=== PATIENT | male | born 1950 | race Caucasian/White ===

== ENCOUNTER 2016-12-22 16:00 | Inpatient (IN) | payer BC, MEDICARE ==
[2017-01-02] MEDS ORDERED: MECLIZINE 25 MG TABLET PO ONE (06:00)
[2017-01-02] MEDS ORDERED: FAMOTIDINE 20MG TABLET PO ONE (06:00)
[2017-01-02] MEDS ORDERED: CELECOXIB 100 MG CAPSULE PO ONE (06:00)
[2017-01-02] MEDS ORDERED: CEFAZOLIN 2 Gram 2 GM/50 ML BAG IVPB ONE (06:00)
[2017-01-02] MEDS ORDERED: METOCLOPRAMIDE 10 MG TABLET PO ONE (06:00)
[2017-01-02] MEDS ORDERED: VANCOMYCIN HCL 1,000 MG in 0.9 % SODIUM CHLORIDE 250ML 250 ML IVPB ONE (06:00)
[2017-01-02 10:14] LABS: ABO GROUP O; ANTIBODY SCREEN NEGATIVE (NEGATIVE); RH TYPE POSITIVE
[2017-01-02] MEDS ORDERED: TRANEXAMIC ACID 1,000 MG/10 ML ML IV ONE ×2 (10:28→16:22)
[2017-01-02] MEDS ORDERED: 0.9 % SODIUM CHLORIDE 10 ML VIAL IVP ONE (10:28)
[2017-01-02] MEDS ORDERED: ACETAMINOPHEN 325 MG TAB PO PRN (13:03)
[2017-01-02] MEDS ORDERED: DIPHENHYDRAMINE HCL 25 MG CAPSULE PO PRN (13:03)
[2017-01-02] MEDS ORDERED: NALOXONE 0.4 MG/1 ML VIAL IVP PRN (13:03)
[2017-01-02] MEDS ORDERED: AL HYDROX/MAG HYDROX 30ML UD PO PRN (13:03)
[2017-01-02] MEDS ORDERED: TRAMADOL HCL 50 MG TABLET PO PRN (13:03)
[2017-01-02] MEDS ORDERED: BISACODYL 10 MG SUPP RC PRN (13:03)
[2017-01-02] MEDS ORDERED: ACETAMINOPHEN W/ CODEINE 300MG/60MG TABLET PO PRN ×2 (13:03)
[2017-01-02] MEDS ORDERED: ONDANSETRON HCL IV 4 MG/2 ML VIAL IVP PRN (13:03)
[2017-01-02] MEDS ORDERED: ZOLPIDEM TARTRATE 5 MG TABLET PO PRN (13:03)
[2017-01-02] MEDS ORDERED: HYDROMORPHONE HCL 2 MG/ML VIAL IM PRN (13:03)
[2017-01-02] MEDS ORDERED: KETOROLAC 30 MG/ML VIAL IVP PRN ×2 (13:03)
[2017-01-02] MEDS ORDERED: HYDROMORPHONE HCL 1MG/ML **SYRINGE IM PRN (13:03)
[2017-01-02] MEDS ORDERED: MAGNESIUM HYDROXIDE 30 ML UDC PO PRN (13:03)
[2017-01-02] MEDS ORDERED: DIPHENHYDRAMINE HCL IV 50 MG/ML VIAL IVP ONE (14:00)
[2017-01-02] MEDS ORDERED: MIDAZOLAM HCL 2MG/2ML VIAL IV ONE (14:00)
[2017-01-02] MEDS ORDERED: LIDOCAINE 2% MDV (20MG/ML) 20ML VIAL IV ONE (14:00)
[2017-01-02] MEDS ORDERED: PROPOFOL 10 MG/ML VIAL IV ONE (14:00)
[2017-01-02] MEDS ORDERED: HYDROMORPHONE HCL 2 MG/ML VIAL IV ONE (14:00)
[2017-01-02] MEDS ORDERED: FENTANYL PF 100MCG/2ML VIAL IV ONE (14:00)
[2017-01-02] MEDS ORDERED: BUPIVACAINE 0.75% W/EPI MPF 30ML VIAL IVP ONE (16:22)
[2017-01-02] MEDS ORDERED: VANCOMYCIN HCL 1 GM VIAL IVPB ONE (16:22)
--- NOTE | 2017-01-02 16:44 | Rehab Evaluation ---
Patient Information - Patient Information Diagnosis: total right knee Ordered Treatment: PT Evaluate and Treat Status: Initial Evaluation Surgery: Yes Date of Surgery: 01/02/17 Past Medical/Surgical Hx: PAST MEDICAL/SURGICAL HISTORY Past Surgical History MOLE REMOVAL LF FOOT AND NECK APPENDECTOMY URETHRA WARTS CHOLECYSTECTOMY KRISH SHOULDER SX C-SCOPE PMH - Respiratory Hx Respiratory Disorders Yes Hx Asthma Yes: ALLERGY INDUCED PMH - Cardiovascular Hx Cardiovascular Disorders Yes Hx Hypertension Yes: CONTROLLED WITH MEDS Exercise Tolerance Good PMH - Neuro Hx Neurological Disorders Yes Hx Neuropathy Yes: BOTTOMS OF FEET PMH - GI Hx Gastrointestinal Disorders Yes Hx Diverticulitis Yes Comment: lactose intollerant PMH - Hx Genitourinary Disorders No PMH - Endocrine Hx of NIDDM Yes Comment: CHECKS DAILY 141 THIS AM RECENT HGB A1 C 7.1 PMH - Musculoskeletal Hx Musculoskeletal Disorders Yes Hx Arthritis Yes: RIGHT KNEE PMH - Psych Hx Psychiatric Problems No PMH - Hematology/Oncology Hx Hematology/Oncology No Disorders Premorbid Status: Detail (The patient was independent with all mobility and ADL' s) Social History: Detail (The patient lives with spouse in a tri-level home. The patient has to climb 7 steps from the first to second floor with one handrail. The patient's bathroom is equipped with a walk in shower without a seat and a regular toilet. The patient has a walker with wheels and several canes with single point.) Precautions: [place], Other (WBAT on the R LE) - Time With Patient Total Time Spent With Patient (Min): 30 Treatment Procedures: Detail (PT initial evaluation) Subjective Information - Subjective Information Per Patient (The patient had no complaints of pain. The patient did complain of lightheadness.) Objective Data - Mental Status Patient Orientation: Oriented x3 - Visual Perception Appears within normal limits for therapeutic activities - ROM Not within normal limits (The patient's L LE AROM was WNL. The patient's R knee AROM was not tested secondary to post-op.) - Strength/Tone Not within normal limits (The patient's L LE strength was 5/5. The patient's R LE strength was not tested secondary to status post op however the patient's strength was functional ( the patient could complete a SLR)) - Bed Mobility Independent (The patient was independent with sit to supine) - Transfers Independent (The patient required supervision for safety with toilet transfer. The patient was independent with sit to and from stand transfer.) - Balance Balance Sitting: Good Balance Standing: Good - Gait Detail (The patient ambulated with wheeled walker a distance of 11 feet x 1 and 7.5 feet x 1 with CG for safety WBAT on the R LE. The patient's ambulation was limited secondary to symptoms of lightheadness.) Therapy Assessment - Therapy Assessment Detail (The patient was independent with bed mobility and transfers. The patient's ambulation distance was limited due to symptooms of lightheadness. The patient completed gluteal sets, quad sets and ankle pumps. Feel the patient will progress well in PT .) Problem List - Problem List Physical Therapy Problem List: Detail (1) Decreased R knee AROM and strength as to be expected following surgery. 2) lightheadness with ambulation 3) Nonambulatory on stairs) Goals - Goals Physical Therapy Goals: 1) The patient will be independent with ambulation with assistive device WBAT on the R LE a distance of 75 - 100 feet. 2) The patient will be independent/supervision with ambulation on a flight of 7 steps WBAT on the R LE. 3) The patient will be independent with all transfers 4) The patient will be independent with HEP. Prognosis - Prognosis Good Plan - Plan Physical Therapy Plan: PT 1-2 times a day for gait training, transfer training, instruction in home exercise program until all PT goals were met.
--- NOTE | 2017-01-02 16:44 | Operative Note ---
DATE: 01/02/2017. PREOPERATIVE DIAGNOSIS: END-STAGE ARTHROSIS OF THE RIGHT KNEE. POSTOPERATIVE DIAGNOSIS: END-STAGE ARTHROSIS OF THE RIGHT KNEE. PROCEDURE: Cemented right total knee arthroplasty using Merino and Nephew Sheri with two components with a size 8 Oxinium femur, size 8 stemmed tibia base plate, a 9 mm lift Highly Crosslinked tibial insert, and a size 35 all- plastic patella. STAFF SURGEON: MICHELA WEAVER M.D. ANESTHESIA: SPINAL. PREPARATION: CHLORAPREP. INDIVIDUAL CONSIDERATIONS: NONE. PROCEDURE: The patient was taken to the Operating Room and placed supine on the operating table. He had a successful induction of a spinal anesthetic. His right lower extremity was then prepped and draped in the usual fashion. The patient had midline approach to the knee. The limb was elevated and the tourniquet was inflated to 250 mmHg. Sharp dissection was carried down through the skin and subcutaneous tissues. Small veins were coagulated with a Bovie. The medial arthrotomy was performed. The patella was everted and the knee was flexed. He exposed bone actually all three compartments and marginal osteophytes. The fat pad was resected, ACL was sacrificed, provisional anterior meniscectomies were performed, and the capsule was released from the medial proximal tibia. Initial femoral fire pilot hole was then made freehand. The initial transverse cutting jig was placed and it was cut in 7 degrees of valgus, adjusted for rotation, and secured with pins for a 10 mm resection. The initial transverse cut was then made. Skin guide was placed at the anterior and posterior fire pilot holes, and it was found that a size 8 would be appropriate. The anterior and posterior cuts were made followed by chamfer cuts were made, osteophytes were removed, and a size 8 trial was placed and was found to fit well. The tibia was brought forward, and the remainder of the meniscal remnants were removed with a Bovie. The extra-articular tibial cutting jig was placed, and it was cut in neutral with a 3-degree AP slope. Care was taken to adjust for rotation and flexion using the extra-articular alignment guide and Bovie landmarks. It was set for a 9-mm resection and keyed off the high lateral side and secured with pins. When cutting the tibia, care was taken to preserve the PCL insertion on the tibia. Osteophytes were removed and I was found that I could fit a size 8, it was adjusted for rotation and secured with pins. With a 9 mm trial as a femoral trial, there was excellent motion and stability. Ligamentous balance, rotation, and alignment were thought to be normal. The femoral fire pilot holes were impacted, and the triflange tibial stamp was impacted, and these trial components were removed. The patient had a very thick patella and roughly 9 mm of bone was removed freehand. I was easily able to fit a 35 patella and three fire pilot holes were drilled. The tourniquet was let down briefly to get bleeders posteriorly then placed back up again. The knee was then thoroughly irrigated out with pulsatile Betadine and saline to remove any visual or palpable debris. Bony surfaces were then dried. A size 8 stem tibial baseplate was cemented into placed followed by impaction of a 9 mm lift Highly Crosslinked tibial insert, followed by cementing of a size 8 Oxinium femur, followed by cementing of a 35 mm patella. Implant surfaces were compressed, excess cement was removed, and after the cement had set, there were excellent motion and stability. Ligamentous balance, rotation alignment, and patellofemoral tracking were normal. No lateral release was required. The tourniquet was let down and hemostasis was obtained with a Bovie. Again, final irrigation. The skin and periosteum were then infiltrated with 30 mL of 0.75% Marcaine with Epinephrine. The capsule was then closed with a running #2 Quill, subcu was closed in layers with running 0 Quill, and the skin was closed with rashid. The patient did receive a gram of Tranexamic Acid preoperatively. A gram of Tranexamic Acid was mixed with 30 mL of saline and it was injected into the knee through a sterile 18-gauge needle and sterile Bulkee compressive Aquacel-type dressing was applied. The patient tolerated the procedure well. Needle and sponge counts were correct. Estimated blood loss was minimal. He was taken back to Recovery in good condition. There were no complications. JOB NUMBER: [id number] [facility]
[2017-01-02] MEDS: CEFAZOLIN 2 Gram 2 GM/50 ML BAG IVPB SCH (18:26)
[2017-01-02] MEDS: ATENOLOL 50 MG TABLET PO SCH (21:45)
[2017-01-02] MEDS: DOCUSATE SODIUM 100 MG CAPSULE PO SCH (21:45)
[2017-01-02] MEDS: POTASSIUM CHLORIDE/D5-0.9%NACL 20 MEQ/1,000 ML BAG IV SCH ×2 (21:47→21:54)
[2017-01-02] MEDS ORDERED: DIPHENHYDRAMINE HCL 25 MG CAPSULE PO SCH (22:00)
[2017-01-03] MEDS: CEFAZOLIN 2 Gram 2 GM/50 ML BAG IVPB SCH ×2 (02:31→12:02)
[2017-01-03] MEDS: HYDROCODONE/APAP 10/325 TABLET PO PRN ×5 (04:10→15:21)
[2017-01-03 06:44] LABS: HEMATOCRIT 37.8 % (42.0-52.0); HEMOGLOBIN 12.1 gm/dl (14.0-18.0)
[2017-01-03 06:56] LABS: BLOOD UREA NITROGEN 15 mg/dL (8-23); CREATININE 0.7 mg/dL (0.7-1.2); EST GLOMERULAR FILTRATION RATE > 60 mL/min; GLUCOSE,RANDOM 128 mg/dL (74-109)
[2017-01-03] MEDS: POTASSIUM CHLORIDE/D5-0.9%NACL 20 MEQ/1,000 ML BAG IV SCH (06:56)
[2017-01-03] MEDS ORDERED: PANTOPRAZOLE SODIUM 40 MG TABLET PO SCH (07:00)
[2017-01-03] MEDS ORDERED: FERROUS SULFATE 325 MG TAB PO SCH (10:00)
[2017-01-03] MEDS ORDERED: LORATADINE 10 MG TABLET PO SCH (10:00)
[2017-01-03] MEDS ORDERED: RIVAROXABAN 10 MG TABLET PO SCH (10:00)
[2017-01-03] MEDS ORDERED: SIMVASTATIN 20 MG TABLET PO SCH (10:00)
[2017-01-03] MEDS ORDERED: BENAZEPRIL 20 MG TABLET PO SCH (10:00)
[2017-01-03] MEDS ORDERED: MULTIVITAMINS/MINERALS TABLET PO SCH (10:00)
[2017-01-03] MEDS ORDERED: METFORMIN 500 MG TABLET PO SCH (10:00)
[2017-01-03] MEDS ORDERED: AMLODIPINE BESYLATE 5MG TAB PO SCH (10:00)
[2017-01-03] MEDS: DOCUSATE SODIUM 100 MG CAPSULE PO SCH (10:23)
[2017-01-03] MEDS: ATENOLOL 50 MG TABLET PO SCH (10:24)
--- NOTE | 2017-01-03 11:29 | Physical Therapy Tx Note ---
Physical Therapy Tx Note - Treatment Note Tolerated: Good Total Time Spent With Patient: 20 Physical Therapy Tx Note: Detail (Pt. ambulated 75 feet independently with front wheeled walker. Pt. required verbal cueing to flex his right knee with swing phase of gait. Pt. was instructed to perform seated heel slides, quad sets , glut sets, and ankle pumps while seated. Pt. was independent with sit to stand and stand to sit transfer. Pt. was not assessed for stair training or bed mobility due to his request to perform training during PM session. Pt. was left seated with call light available, B IPC, cryo right knee.) Physical Therapy Problem List: Detail (1) Decreased R knee AROM and strength as to be expected following surgery. 2) lightheadness with ambulation 3) Nonambulatory on stairs) Physical Therapy Goals: 1) The patient will be independent with ambulation with assistive device WBAT on the R LE a distance of 75 - 100 feet. 2) The patient will be independent/supervision with ambulation on a flight of 7 steps WBAT on the R LE. 3) The patient will be independent with all transfers 4) The patient will be independent with HEP. Prognosis: Good (Pt. needs to be assessed for stair training and bed mobility, otherwise he has met all goals.) Physical Therapy Plan: PT 1-2 times a day for gait training, transfer training, instruction in home exercise program until all PT goals were met.
--- NOTE | 2017-01-03 13:28 | Rehab Evaluation ---
Patient Information - Patient Information Diagnosis: total right knee Ordered Treatment: OT Evaluate and Treat Status: Initial Evaluation Surgery: Yes Date of Surgery: 01/02/17 Past Medical/Surgical Hx: PAST MEDICAL/SURGICAL HISTORY Past Surgical History MOLE REMOVAL LF FOOT AND NECK APPENDECTOMY URETHRA WARTS CHOLECYSTECTOMY KRISH SHOULDER SX C-SCOPE PMH - Respiratory Hx Respiratory Disorders Yes Hx Asthma Yes: ALLERGY INDUCED PMH - Cardiovascular Hx Cardiovascular Disorders Yes Hx Hypertension Yes: CONTROLLED WITH MEDS Exercise Tolerance Good PMH - Neuro Hx Neurological Disorders Yes Hx Neuropathy Yes: BOTTOMS OF FEET PMH - GI Hx Gastrointestinal Disorders Yes Hx Diverticulitis Yes Comment: lactose intollerant PMH - Hx Genitourinary Disorders No PMH - Endocrine Hx of NIDDM Yes Comment: CHECKS DAILY 141 THIS AM RECENT HGB A1 C 7.1 PMH - Musculoskeletal Hx Musculoskeletal Disorders Yes Hx Arthritis Yes: RIGHT KNEE PMH - Psych Hx Psychiatric Problems No PMH - Hematology/Oncology Hx Hematology/Oncology No Disorders Premorbid Status: Detail (The patient was independent with all mobility and I/ ADL's) Social History: Detail (The patient lives with spouse in a tri-level home. The patient has to climb 7 steps from the first to second floor with one handrail. The patient's bathroom is equipped with a walk in shower, hand held shower head , and has a shower chair available prn. Pt has a raised toilet seat and test operator also. The patient has a walker with wheels and several canes with single point.) Precautions: [place], Other (WBAT on the R LE) - Time With Patient Total Time Spent With Patient (Min): 25 Subjective Information - Subjective Information Per Patient Objective Data - Pain Pain Present: Yes (R knee with movement.) - Mental Status Patient Orientation: Oriented x3 - Visual Perception Appears within normal limits for therapeutic activities - ROM Within normal limits (BUE) - Strength/Tone Within normal limits (BUE. Pt. reported hx of R RTC repair Apr 2016, with minimal residual pain that does not effect ability to use walker or support self using RUE, and L shd ligament repair 4 years ago with no residual effects.) - Coordination Appears within normal limits for therapeutic activities - Bed Mobility Independent - Transfers Independent (sit<>stand EOB to 2WW) - Balance Balance Sitting: Good Balance Standing: Good - Sensation Intact (BUE) - ADL's/IADL's Detail (Pt. demo. ability to don/doff bilateral socks seated EOB, using AE ( i.e. test operator) prn. Educ. provided in dressing techniques and use of equipment ( test operator, sock aid). Pt. verbalized understanding.) Therapy Assessment - Therapy Assessment Detail (Pt. verbalized understanding of AE and dressing techniques, and has AE. Pt. has a positive support system to assist with I/ADL's prn while recovering. Pt. demo. good agility/mobility, and is highly motivated to return to typical I/ ADL routine. OT services are not recommended at this time.) Patient Education - Patient Education Teaching Topic: Equipment Use Response: Return Demonstration, Verbalize Understanding Teaching Method: Discussion, Demonstration Teaching Recipient: Patient Barriers To Learning: None Problem List - Problem List Physical Therapy Problem List: Detail (1) Decreased R knee AROM and strength as to be expected following surgery. 2) lightheadness with ambulation 3) Nonambulatory on stairs) Goals - Goals Physical Therapy Goals: 1) The patient will be independent with ambulation with assistive device WBAT on the R LE a distance of 75 - 100 feet. 2) The patient will be independent/supervision with ambulation on a flight of 7 steps WBAT on the R LE. 3) The patient will be independent with all transfers 4) The patient will be independent with HEP. Prognosis - Prognosis Good Plan - Plan Physical Therapy Plan: PT 1-2 times a day for gait training, transfer training, instruction in home exercise program until all PT goals were met. Occupational Therapy Plan: OT services not recommended at this time; d/c from OT.
--- NOTE | 2017-01-03 15:27 | Physical Therapy Tx Note ---
Physical Therapy Tx Note - Treatment Note Tolerated: Good Total Time Spent With Patient: 20 Physical Therapy Tx Note: Detail (The patient was in bed when PT arrived. The patient ambulated with wheeled walker 50 feet x 1 independently WBAT on R LE. The patient ambulated on 7 steps with present with CG of 1 for safety with use of 1 railing and std cane, WBAT on the R LE.) Physical Therapy Problem List: Detail (1) Decreased R knee AROM and strength as to be expected following surgery. 2) lightheadness with ambulation 3) Nonambulatory on stairs) Physical Therapy Goals: 1) The patient will be independent with ambulation with assistive device WBAT on the R LE a distance of 75 - 100 feet. 2) The patient will be independent/supervision with ambulation on a flight of 7 steps WBAT on the R LE. 3) The patient will be independent with all transfers 4) The patient will be independent with HEP. Physical Therapy Plan: The patient has met all PT inpatient goals and is discharged from PT. The patient is to receive Home PT.
--- NOTE | 2017-01-04 16:49 | Discharge Summary ---
DATE OF ADMISSION: 01/02/17 DATE OF DISCHARGE: 01/03/17 DATE OF SURGERY: 01/02/17 HISTORY: Mr. Ojeda is a delightful 66-year-old male who presents with end- stage arthrosis of his right knee. He was admitted after right total knee arthroplasty. Postoperatively, he did great. He was independent by the night of surgery. DISCHARGE INSTRUCTIONS: The plan is to discharge him home in the care of his family and home PT and Visiting Nurse have been arranged. He will be given Humble for pain and Xarelto for DVT prophylaxis. Visiting Nurse will remove his sutures in two weeks and he will follow-up in my office in four weeks. FINAL DIAGNOSIS/PRIMARY DIAGNOSIS: END-STAGE ARTHROSIS OF THE RIGHT KNEE. OPERATIONS AND PROCEDURES: CEMENTED RIGHT TOTAL KNEE ARTHROPLASTY. DISCHARGE CONDITION: GOOD. JOB NUMBER: [id number] MTDD
== END 2017-01-03 16:46 | disposition swing bed (61) | DRG 470 ==
LOC: MEDSURG 01-02 08:46 → UNDOADMIN 01-02 08:46
PROVIDERS: ADMIT Orthopaedic Surgery; ATTEND Orthopaedic Surgery
PROC: 0SRC069 Replacement of Right Knee Joint with Oxidized Zirconium on Polyethylene Synthetic Substitute, Cemented, Open Approach (ICD-10-PCS; principal; 2017-01-02 11:00)
DX: M17.11 Unilateral primary osteoarthritis, right knee (principal); E11.9 Type 2 diabetes mellitus without complications; Z79.84 Long term (current) use of oral hypoglycemic drugs; I10 Essential (primary) hypertension; E78.00 Pure hypercholesterolemia, unspecified
CPT/HCPCS: 80048; 85014; 85018; 86850; 86900; 86901; 94760; 97110; 97116; 97165; J1170; J1200; J3480; J3490; J7050